=== PATIENT | female | born 1995 | race Caucasian/White ===

== ENCOUNTER 2020-10-21 19:51 | Emergency (ER) | payer SELFPAY ==
[2020-10-21 20:35] VITALS: BP 149/80; PULSE 71; RESP 16; TEMP 36.7; O2SAT 100; BMI 19.1
--- NOTE | 2020-10-21 22:26 | CTR_ITS ---
PROCEDURE INFORMATION: Exam: CT Abdomen And Pelvis Without Contrast Exam date and time: 10/21/2020 10:40 PM Age: 24 years old Clinical indication: Abdominal pain; Patient HX: Right flank pain. History of nephrolithiasis; Additional info: R flank pain TECHNIQUE: Imaging protocol: Computed tomography of the abdomen and pelvis without contrast. Radiation optimization: All CT scans at this facility use at least one of these dose optimization techniques: automated exposure control; mA and/or kV adjustment per patient size (includes targeted exams where dose is matched to clinical indication); or iterative reconstruction. COMPARISON: No relevant prior studies available. RADIATION DOSE METRICS: Total DLP (mGy-cm): 442.45 FINDINGS: Liver: Normal. No mass. Gallbladder and bile ducts: Cholelithiasis. No thickening of gallbladder wall. No dilation of biliary system. Pancreas: Normal. No ductal dilation. Spleen: Normal. No splenomegaly. Adrenal glands: Normal. No mass. Kidneys and ureters: Several punctate bilateral kidney stones. No perinephric inflammation. Negative for hydronephrosis. Stomach and bowel: No inflammatory changes of the bowel loops are identified. Negative for bowel obstruction or perforation. Appendix: No evidence of appendicitis. Intraperitoneal space: Trace pelvic free fluid is present; suspect physiologic volume. Vasculature: Unremarkable. No abdominal aortic aneurysm. Lymph nodes: Unremarkable. No enlarged lymph nodes. Urinary bladder: Unremarkable as visualized. Reproductive: Unremarkable as visualized. Bones/joints: Unremarkable. No acute fracture. Soft tissues: No abdominopelvic fluid collection. CT/CT kidney stone [id number] IMPRESSION: 1. No acute pathology in the abdomen or the pelvis is identified. 2. Numerous small nonobstructing bilateral kidney stones are present. There is a calcification in the pelvis, however this appears medial to the expected course of the right ureter. 3. Cholelithiasis incidentally noted. Radiation Dose CTDIVOL = (mGy): DLP = 442.45 (mGy-cm)
[2020-10-21 22:34] VITALS: RESP 18; O2SAT 98
[2020-10-21] MEDS: ondansetron 4 MG Tablet PO (22:34)
[2020-10-21] MEDS: oxyCODONE-APAP 5-325 mg Tablet 2 TAB PO (22:34)
[2020-10-21 23:01] LABS: Urine Color Yellow (Yellow)
[2020-10-21 23:02] LABS: Add Urine Microscopic? YES; Bacteria Urine TRACE /hpf; Bilirubin Urine Neg (Negative); Blood Urine 3+ (Negative); Glucose Urine UA Norm (Normal); Ketones Urine Negative (Negative); Leukocyte Esterase Urine Negative (Negative); Nitrate Urine Negative (Negative); Protein Urine Neg (Negative); RBC Urine 15-25 /hpf (0-2); Squamous Epithelial Cell Urine 0-4 /hpf (0-5); Sulfosalicylic Acid Urine Negative (Negative); Urine Appearance Clear (CLEAR); Urobilinogen Urine Norm (Negative); WBC Urine 0-4 /hpf (0-5); pH Urine 8 (5-7)
[2020-10-21 23:03] LABS: Add Urine Culture? Yes
[2020-10-21 23:10] LABS: HCG Qualitative Urine. Negative (Negative)
[2020-10-22] MEDS: promethazine 25 mg/mL SDV 1 mL 12.5 MG IM (00:45)
--- NOTE | 2020-10-22 02:00 | W.ED.FEMALGU ---
HPI - Female Genitourinary General: Chief complaint: Urogenital-Female Stated complaint: abd pain Time Seen by Provider: 10/21/20 22:16 History of Present Illness: HPI Narrative: 24-year-old female with a history of kidney stones in the past. Those were on her left. She presents with right flank and right-sided belly pain starting earlier in the evening. She states that she had trouble working. She was nauseated, and vomited a couple of times at work. No fever. No overt change in the look of her urine. She does states that she started her period, and that she first believes it was just a bad cycle. She notes today after she arrived in the ER, her pain began to significantly improve. MD elicited complaint: flank pain Pertinent past history: other Onset (ago): hour(s) Location of symptoms: RLQ and flank Quality of pain: sharp, stabbing and aching Vaginal bleeding: scant Urinary symptoms: Flank Pain Exacerbating factors: movement Relieving factors: none Associated symptoms: Reports abdominal pain and nausea; Deny short of breath, fevers/chills or headache(s) Treatment prior to arrival: NSAIDs Sexual activity: Yes Patient : No Date of Last Menstrual Period: 10/21/20 Review of Systems Const: Denies: fever(s) or chills Card: Denies: chest pain or palpitations Resp: Denies: dyspnea GI: Reports: abdominal pain, nausea and vomiting : Reports: flank pain and difficulty voiding Neuro: Denies: headache(s) Endo: Denies: polyuria or polydipsia [facility] ED PFSH: Medical History (Updated 10/22/20 @ 00:22 by Onesimo Vila DO) History of gallstones History of kidney stones Female Reproductive History: Date of last menstrual period: 10/21/20 Physical Exam Const: GENERAL APPEARANCE: well developed ORIENTATION/CONSCIOUSNESS: Yes oriented to person, Yes oriented to place and Yes oriented to time HENMT: COMMON NORMALS: normocephalic, external ears normal and Normal external nose present HEAD & SCALP: normocephalic FACE & SINUS: normal facial exam NOSE: Normal external nose present and No nasal discharge present EXTERNAL EAR: Yes external ears normal MOUTH: tongue normal TEETH & GINGIVA: no abnormal tooth and associated gingiva THROAT: posterior oropharynx normal; no peritonsillar mass Eye: COMMON NORMALS: Equal, round and reactive pupils present and EOMs intact bilaterally EYELID: eyelids normal PUPIL: Yes Equal, round and reactive pupils present Chest: COMMONS NORMALS: normal inspection of the chest CHEST: No tenderness Resp: COMMON NORMALS: clear to auscultation bilaterally EFFORT & INSPECTION: No tachypneic, No respiratory distress, No retractions, No uses accessory muscles and No tracheal deviation AUSCULTATION: clear to auscultation bilaterally, no rhonchi, no wheezes and lung sounds not diminished Cardio: COMMON NORMALS: regular rate and regular rhythm RATE: regular rate RHYTHM: regular rhythm HEART SOUNDS: no murmurs PERIPHERAL PULSES: radial pulses present GI: INSPECTION: No abdominal distension AUSCULTATION: No Hyperactive bowel sounds present and No Hypoactive bowel sounds present PALPATION: No Guarding due to palpation present (GI) and No Rigid due to palpation PERCUSSION: no dullness to percussion and no tympanic to percussion : BLADDER/KIDNEY EXAM: Yes CVA tenderness on the right Back/Pelvis: GENERAL BACK: Yes CVA tenderness Neuro: SENSORIUM/ORIENTATION: Yes oriented to person, Yes oriented to place and Yes oriented to time Psych: COMMON NORMALS: mental status grossly normal Skin: COMMON NORMALS: no rashes or lesions noted GENERAL SKIN EXAM: no rashes or lesions noted Course Vital Signs: Vital signs: Vital Signs Temperature 98.0 F 10/21/20 20:35 Pulse Rate 71 10/21/20 20:35 Respiratory Rate 18 10/21/20 22:34 Blood Pressure 149/80 10/21/20 20:35 Pulse Oximetry 98 10/21/20 22:34 MDM - Female MDM Narrative: Medical decision making narrative: 24-year-old female with right flank pain which seems to be resolving. She does have blood in her urine, but always she will recently start her period. Her hCG is negative. CT stone protocol shows no evidence of appendicitis. There is no obstructing stone present. No renal stranding. Urinalysis is negative for urine tract infection. Lab Data: Labs: Lab Results 10/21/20 10/21/20 Range/Units 22:37 22:37 HCG, Qual Negative (Negative) Urine Color Yellow (Yellow) Urine Appearance Clear (CLEAR) Urine pH 8 H (5-7) Ur Specific Gravit y 1.010 (1.005-1.030) Urine Protein Neg (Negative) Urine Glucose (UA) Norm (Normal) Urine Ketones Negative (Negative) Urine Blood 3+ H (Negative) Urine Nitrate Negative (Negative) Urine Bilirubin Neg (Negative) Prot Sulfosalicyli c Acd Negative (Negative) Urine Urobilinogen Norm (Negative) mg/dL Ur Leukocyte Meka ase Negative (Negative) Urine RBC 15-25 H (0-2) /hpf Urine WBC 0-4 H (0-5) /hpf Ur Squamous Epith Cells 0-4 H (0-5) /hpf Amorphous Sediment Not Reportable Urine Bacteria Trace (NONE) /hpf Discharge Plan Discharge Patient Disposition: Home Clinical Impression: Renal colic on right side Condition: Stable Prescriptions: New Zofran 4 mg tablet 4 mg PO Q6H PRN (Reason: nausea and vomiting) Qty: 10 RF: 0 ketorolac 10 mg tablet 10 mg PO TID PRN (Reason: pain) Qty: 10 RF: 0 Discharge Orders: Discharge ED (Routine); Ordered 10/22/20 Ordered By: Onesimo Vila Referrals: Harshil Castellanos FNP [Primary Care Provider] - 1-3 days Discharge Diet: Advance as tolerated Discharge Activity: Increase activity as tolerated Patient Instructions: Renal Colic (ED) Activity Restrictions/Additional Instructions: Return for worsening pain despite treatment, vomiting liquids or medications, fever greater than 100, other concerning symptoms. Stand Alone Forms: Work/School Release Coding Level of Care Code ED School Laboratory Technician for Julissa Sanchez
== END 2020-10-22 00:50 | disposition home or self-care (01) ==
PROVIDERS: Physician Assistant; Emergency Provider Emergency Medicine; PCP Nurse Practitioner Family
DX: N23 Unspecified renal colic (principal); Z87.442 Personal history of urinary calculi
CPT/HCPCS: 74176; 81001; 81025; 87086; 96372; 96374; 99283; J2550; Q0162

== ENCOUNTER 2022-07-05 01:17 | Emergency (ER) | payer BC, MEDICAID, SELFPAY ==
[2022-07-05] VITALS (9 sets, daily range): BP systolic 97–112; BP diastolic 62–93; PULSE 61–76; RESP 16–20; TEMP 36.8; O2SAT 95–99; BMI 23.2
--- NOTE | 2022-07-05 01:21 | CTR_ITS ---
PROCEDURE INFORMATION: Exam: CT Abdomen And Pelvis Without Contrast Exam date and time: 07/05/2022 2:10 AM Age: 26 years old Clinical indication: Nausea and vomiting; Abdominal pain; Right; Patient HX: C/O RT flank pain with n/v. ; Additional info: R flank pain TECHNIQUE: Imaging protocol: Computed tomography of the abdomen and pelvis without contrast. Radiation optimization: All CT scans at this facility use at least one of these dose optimization techniques: automated exposure control; mA and/or kV adjustment per patient size (includes targeted exams where dose is matched to clinical indication); or iterative reconstruction. COMPARISON: CT kidney stone [id number] 10/21/2020 11:41 PM RADIATION DOSE METRICS: Total DLP (mGy-cm): 302.82 FINDINGS: Lungs: Noncalcified 5 mm left lower lobe pulmonary nodule. Liver: Unremarkable. Gallbladder and bile ducts: Distended gallbladder containing multiple stones. Pancreas: No ductal dilation. Spleen: No splenomegaly. Adrenal glands: Normal. No mass. Kidneys and ureters: Bilateral nephrolithiasis. There is mild right hydronephrosis. No hydronephrosis of the left kidney. Stomach and bowel: No obstruction. No mucosal thickening. Appendix: No evidence of appendicitis. Intraperitoneal space: No free air. No significant fluid collection. Vasculature: No abdominal aortic aneurysm. Lymph nodes: No enlarged lymph nodes. Urinary bladder: There is a 2 mm stone in the right lateral bladder base. Reproductive: Unremarkable as visualized. Bones/joints: Unremarkable. No acute fracture. Soft tissues: Unremarkable. CT/CT kidney stone [id number] IMPRESSION: 1. Distended gallbladder containing multiple stones. 2. Bilateral nephrolithiasis. There is mild right hydronephrosis. There is a 2 mm stone in the right lateral bladder base. 3. Normal appendix. 4. Noncalcified 5 mm left lower lobe pulmonary nodule. For patients at low risk (minimal or absent history of smoking and of other known risk factors), no routine follow-up is indicated. For patients at high risk (history of smoking or of other known risk factors), consider optional CT Chest at 12 months. (Reference: José Antonio) References: José Antonio Ribeiro et al. Guidelines for Management of Incidental Pulmonary Nodules Detected on CT Images: From the Fleischner Society 2017. Radiology. 2017;284(1):228-243.
--- NOTE | 2022-07-05 01:22 | W.ED.ABDPA2 ---
HPI - Abdominal Pain General: Chief Complaint: Abdominal Pain Stated Complaint: RLQ PAIN Time Seen by Provider: 07/05/22 01:18 Source: patient and EMS Mode of arrival: EMS Limitations: no limitations History of Present Illness: 26-year-old female states that since this evening she has been having severe right-sided flank pain that radiates to her groin she also had nausea vomiting states her pain is currently 9 out of 10 states that history of multiple kidney stones in the past and this feels similar. She denies any worsening improving factors denies any dysuria denies any fevers. Associated Symptoms: Reports nausea and vomiting; Denies chills and fever(s) Related Data: Date of Last Menstrual Period: 10/21/20 Review of Systems Const: Denies: fever(s), chills, body aches or change in appetite Eyes: Denies: blurry vision or eye discomfort ENMT: Denies: throat pain or dental pain Card: Denies: chest pain Resp: Denies: dyspnea GI: Reports: abdominal pain, nausea and vomiting : Reports: flank pain Musc: Denies: neck pain or back pain Skin/Breast: Denies: rash Neuro: Denies: headache(s) Psych: Denies: depression Masoud/Lymph: Denies: easy bruising All/Imm: Denies: urticaria PFSH ED PFSH: Medical History Anxiety Depression History of gallstones History of kidney stones Psychiatric care Social History (Updated 07/05/22 @ 01:22 by Ben Cruz MD) Substance/Drug Use: never Female Reproductive History: Date of last menstrual period: 10/21/20 Physical Exam Const: COMMON NORMALS: no acute distress, patient oriented x3 and healthy appearing HENMT: COMMON NORMALS: normocephalic and atraumatic HEAD & SCALP: normocephalic and atraumatic Eye: COMMON NORMALS: Equal, round and reactive pupils present and EOMs intact bilaterally PUPIL: Yes Equal, round and reactive pupils present Neck/C-Spine: COMMON NORMALS: full ROM and supple Chest: COMMONS NORMALS: normal inspection of the chest and normal palpation of entire chest wall Resp: COMMON NORMALS: normal respiratory effort, No retractions, No use of accessory muscles and clear to auscultation bilaterally AUSCULTATION: clear to auscultation bilaterally Cardio: COMMON NORMALS: regular rate, regular rhythm and No murmurs present (Cardio) RATE: regular rate RHYTHM: regular rhythm GI: COMMON NORMALS: Normal to inspection, nondistended, normoactive bowel sounds present, Soft to palpation, non-tender and no masses PALPATION: Yes Soft to palpation Extremity: COMMON NORMALS: normal to inspection and full ROM Neuro: COMMON NORMALS: patient oriented x3, moves all extremities and no focal motor deficits Psych: COMMON NORMALS: mental status grossly normal, Normal thought process present and cooperative THOUGHT PROCESS: Normal thought process present Skin: COMMON NORMALS: no rashes or lesions noted and no wounds GENERAL SKIN EXAM: no rashes or lesions noted Course Vital Signs: Vital signs: Vital Signs Temperature 98.2 F 07/05/22 03:48 Pulse Rate 71 07/05/22 03:48 Respiratory Rate 16 07/05/22 03:48 Blood Pressure 112/83 07/05/22 03:48 Pulse Oximetry 99 07/05/22 03:48 Oxygen Delivery Me thod 07/05/22 03:48 MDM - Abdominal Pain Medical Decision Making Patient presents here with abdominal pain flank pain from a kidney stone her pain is much improved here she does have gallstones no signs of cholecystitis she stable for discharge we will prescribe her pain meds she is to follow-up and return if worsening. Lab Data 07/05/22 01:00 07/05/22 01:00 Labs/Radiology: Radiology Impressions Abdomen/Pelvis CT 07/05/22 01:21 IMPRESSION: 1. Distended gallbladder containing multiple stones. 2. Bilateral nephrolithiasis. There is mild right hydronephrosis. There is a 2 mm stone in the right lateral bladder base. 3. Normal appendix. 4. Noncalcified 5 mm left lower lobe pulmonary nodule. For patients at low risk (minimal or absent history of smoking and of other known risk factors), no routine follow-up is indicated. For patients at high risk (history of smoking or of other known risk factors), consider optional CT Chest at 12 months. (Reference: José Antonio) References: José Antonio Ribeiro, et al. Guidelines for Management of Incidental Pulmonary Nodules Detected on CT Images: From the Fleischner Society 2017. Radiology. 2017;284(1):228-243. Laboratory Results WBC 16.5 10^3/uL (4.0-10.0) H 07/05/22 01:00 RBC 4.59 10^6/uL (4.1-5.3) 07/05/22 01:00 Hgb 14.3 g/dL (11.5-15.3) 07/05/22 01:00 Hct 41.3 % (37.0-47.0) 07/05/22 01:00 MCV 90.0 fl (81-99) 07/05/22 01:00 MCH 31.2 pg (28.0-34.0) 07/05/22 01:00 MCHC 34.6 g/dL (30.0-36.0) 07/05/22 01:00 RDW 12.2 % (12.1-15.1) 07/05/22 01:00 Plt Count 416 10^3/cmm (130-400) H 07/05/22 01:00 MPV 10.6 fL (7.4-10.4) H 07/05/22 01:00 Neut % (Auto) 81.9 % 07/05/22 01:00 Lymph % (Auto) 13.7 % 07/05/22 01:00 Ray % (Auto) 3.1 % 07/05/22 01:00 Eos % (Auto) 0.5 % 07/05/22 01:00 Baso % (Auto) 0.4 % 07/05/22 01:00 Neut # (Auto) 13.53 10^3/uL (1.8-7.7) H 07/05/22 01:00 Lymph # (Auto) 2.3 10^3/uL (0.8-4.8) 07/05/22 01:00 Ray # (Auto) 0.5 10^3/uL (0.2-0.9) 07/05/22 01:00 Eos # (Auto) 0.1 10^3/uL (0.0-0.8) 07/05/22 01:00 Baso # (Auto) 0.1 10^3/uL (0.0-0.1) 07/05/22 01:00 Nucleated RBC % (auto) 0 % 07/05/22 01:00 Nucleated RBCs # 0.0 /100WBC 07/05/22 01:00 Sodium 138 mmol/L (136-145) 07/05/22 01:00 Potassium 3.8 mmol/L (3.5-5.1) 07/05/22 01:00 Chloride 103 mmol/L (98-107) 07/05/22 01:00 Carbon Dioxide 19 mmol/L (22-29) L 07/05/22 01:00 Anion Gap 19.8 (5-19) H 07/05/22 01:00 BUN 10 mg/dL (6-20) 07/05/22 01:00 Creatinine 1.0 mg/dL (0.5-0.9) H 07/05/22 01:00 GFR Calculation 66.0 mL/min (90-130) L 07/05/22 01:00 Glucose 162 mg/dL (65-115) H 07/05/22 01:00 Calculated Osmolality 289 mOsm/kg (285-295) 07/05/22 01:00 Calcium 9.8 mg/dL (8.5-10.5) 07/05/22 01:00 Total Bilirubin 0.7 mg/dL (0.15-1.2) 07/05/22 01:00 AST 16 U/L (0-32) 07/05/22 01:00 ALT 13 U/L (0-33) 07/05/22 01:00 Alkaline Phosphatase 54 U/L (35-105) 07/05/22 01:00 Total Protein 7.8 g/dL (6.6-8.7) 07/05/22 01:00 Albumin 4.9 g/dL (3.5-5.2) 07/05/22 01:00 Globulin 2.9 g/dL (1.3-4.6) 07/05/22 01:00 Lipase 13 U/L (13-60) 07/05/22 01:00 HCG, Qual Negative (Negative) 07/05/22 01:00 Urine Color Yellow (Yellow) 07/05/22 01:30 Urine Appearance Sl hazy (CLEAR) A 07/05/22 01:30 Urine pH 6 (5-7) 07/05/22 01:30 Ur Specific Bradley 1.020 (1.005-1.030) 07/05/22 01:30 Urine Protein 1+ (Negative) H 07/05/22 01:30 Urine Glucose (UA) Norm (Normal) 07/05/22 01:30 Urine Ketones 3+ (Negative) H 07/05/22 01:30 Urine Blood 3+ (Negative) H 07/05/22 01:30 Urine Nitrate Negative (Negative) 07/05/22 01:30 Urine Bilirubin Neg (Negative) 07/05/22 01:30 Urine Urobilinogen 1 mg/dL (Negative) H 07/05/22 01:30 Ur Leukocyte Esterase Trace (Negative) H 07/05/22 01:30 Urine RBC Too numerous to cnt /hpf (0-2) H 07/05/22 01:30 Urine WBC 0-4 /hpf (0-5) H 07/05/22 01:30 Ur Squamous Epith Cells 0-4 /hpf (0-5) H 07/05/22 01:30 Amorphous Sediment Not Reportable 07/05/22 01:30 Urine Bacteria Trace /hpf (NONE) 07/05/22 01:30 Urine Mucus 2+ /hpf 07/05/22 01:30 Discharge Plan Discharge Patient Disposition: Home Clinical Impression: Kidney stone, Gallstone Prescriptions: New hydrocodone-acetaminophen 5-325 mg tablet 1 tab PO Q6H PRN (Reason: pain) Qty: 14 0RF ondansetron 4 mg tablet,disintegrating 4 mg PO Q6H PRN (Reason: nausea and vomiting) Qty: 14 0RF Discharge Orders: Discharge ED (Routine); Ordered 07/05/22 Ordered By: Ben Cruz Discharge Diet: Advance as tolerated Discharge Activity: Resume usual activity Patient Instructions: Gallstones (ED), Kidney Stones (ED), Opioid Safety Coding Level of Care Code ED Mechanical Facilities Technician for Chg Fwd Exam Comprehensive
[2022-07-05] MEDS: HYDROmorphone 1 mg/mL INJ 1 mL IVP (01:33)
[2022-07-05] MEDS: ondansetron 2 mg/ML SDV 2 mL 4 MG IVP (01:34)
[2022-07-05] MEDS: sodium chloride 0.9% 1,000 ML 999 ML IV (01:34)
[2022-07-05 01:44] LABS: Basophils # 0.1 10^3/uL (0.0-0.1); Basophils % 0.4 %; Eosinophils # 0.1 10^3/uL (0.0-0.8); Eosinophils % 0.5 %; Hematocrit 41.3 % (37.0-47.0); Hemoglobin 14.3 g/dL (11.5-15.3); Lymphocytes # 2.3 10^3/uL (0.8-4.8); Lymphocytes % 13.7 %; Mean Corpuscular HGB Conc 34.6 g/dL (30.0-36.0); Mean Corpuscular Hemoglobin 31.2 pg (28.0-34.0); Mean Platelet Volume 10.6 fL (7.4-10.4); Monocytes # 0.5 10^3/uL (0.2-0.9); Monocytes % 3.1 %; Neutrophils # 13.53 10^3/uL (1.8-7.7); Neutrophils % 81.9 %; Nucleated Red Blood Cells % 0 %; Platelet Count 416 10^3/cmm (130-400); Red Blood Count 4.59 10^6/uL (4.1-5.3); Red Cell Distribution Width 12.2 % (12.1-15.1); White Blood Count 16.5 10^3/uL (4.0-10.0)
[2022-07-05 01:56] LABS: Blood Urine 3+ (Negative); Glucose Urine UA Norm (Normal); Ketones Urine 3+ (Negative); Protein Urine 1+ (Negative); Urine Appearance SL Hazy (CLEAR); Urine Color Yellow (Yellow); pH Urine 6 (5-7)
[2022-07-05 01:57] LABS: Add Urine Culture? No; Add Urine Microscopic? YES; Bacteria Urine TRACE /hpf; Bilirubin Urine Neg (Negative); Leukocyte Esterase Urine Trace (Negative); Mucus Urine 2+ /hpf; Nitrate Urine Negative (Negative); RBC Urine TOO NUMEROUS TO CNT /hpf (0-2); Squamous Epithelial Cell Urine 0-4 /hpf (0-5); Urobilinogen Urine 1 mg/dL (Negative); WBC Urine 0-4 /hpf (0-5)
[2022-07-05 02:08] LABS: HCG, Serum Qual Negative (Negative)
[2022-07-05 02:10] LABS: Alanine Aminotransferase 13 U/L (0-33); Albumin Level 4.9 g/dL (3.5-5.2); Alkaline Phosphatase 54 U/L (35-105); Anion Gap 19.8 (5-19); Aspartate Amino Transferase 16 U/L (0-32); Blood Urea Nitrogen 10 mg/dL (6-20); Calcium 9.8 mg/dL (8.5-10.5); Carbon Dioxide 19 mmol/L (22-29); Chloride 103 mmol/L (98-107); Globulin 2.9 g/dL (1.3-4.6); Glucose 162 mg/dL (65-115); Lipase 13 U/L (13-60); Osmolality Calculated 289 mOsm/kg (285-295); Potassium 3.8 mmol/L (3.5-5.1); Sodium 138 mmol/L (136-145); Total Bilirubin 0.7 mg/dL (0.15-1.2); Total Protein 7.8 g/dL (6.6-8.7)
[2022-07-05] MEDS: metoclopramide 5 mg/mL SDV 2 mL 10 MG IVP (02:57)
[2022-07-05] MEDS: diphenhydrAMINE 50 mg/mL SDV 1mL IVP (02:57)
== END 2022-07-05 04:10 | disposition home or self-care (01) ==
PROVIDERS: Emergency Provider Emergency Medicine
DX: N20.0 Calculus of kidney (principal); K80.20 Calculus of gallbladder without cholecystitis without obstruction; Z87.442 Personal history of urinary calculi
CPT/HCPCS: 74176; 80053; 81001; 83690; 84703; 85025; 96361; 96374; 96375; 99285; J1170; J1200; J2405; J2765; J7030